=== PATIENT | male | born 1980 | race Two or more races ===

== ENCOUNTER 2018-10-10 18:07 | Emergency (ER) | payer SELFPAY ==
[~2018-10-10] VITALS: Ht 172.7 cm; Wt 68.0 kg
[2018-10-10 18:28] VITALS: BP 118/73
[2018-10-10] MEDS ORDERED: HYDROcodone-ACET 5/325MG TAB PO ONE (22:30)
[2018-10-10] MEDS ORDERED: cefTRIAXone SOD 1,000 MG VL IM ONE (22:30)
[2018-10-10] MEDS ORDERED: LIDOCAINE 2%HCL (LOCAL ANESTH.) INJ 20ML MDV ONE (22:59)
== END 2018-10-10 23:21 | disposition home or self-care (01) ==
LOC: ER 18:16
DX: L02.416 Cutaneous abscess of left lower limb (principal); Z88.6 Allergy status to analgesic agent
CPT/HCPCS: 10060; 96372; 99283; C1887; J0696

== ENCOUNTER 2019-02-18 13:22 | Emergency (ER) | payer MEDICAID, OTHER ==
[~2019-02-18] VITALS: Ht 170.2 cm; Wt 63.5 kg
[2019-02-18 13:38] VITALS: BP 126/87
[2019-02-18 14:35] LABS: Basophils # (auto) 0.2 uL; Basophils % (auto) 3.1 % (0.0-2.0); Eosinophils # (auto) 0.1 uL; Eosinophils % (auto) 1.8 % (0.0-7.0); Hematocrit 50.2 % (41.0-53.0); Hemoglobin 16.8 g/dL (13.5-17.5); Lymphocytes # (auto) 1.3 uL; Mean Corpuscular Hemoglobin 31.2 pg (28.0-32.0); Mean Corpuscular Hgb Conc. 33.5 g/dL (32.0-36.0); Mean Corpuscular Volume 93.3 fL (80.0-100.0); Monocytes # (auto) 0.7 uL; Monocytes % (auto) 10.4 % (0.0-12.0); Neutrophils # (auto) 4.2 uL; Neutrophils % (auto) 64.7 % (37.0-80.0); Nucleated Red Blood Cells % 0.1 %; Platelet Count (auto) 393 10^3/uL (140-450); Red Blood Cells 5.38 10^6/uL (4.5-5.90); Red Cell Distribution Width 13.8 % (11.8-14.3); White Blood Cell 6.5 10^3/uL (4.4-10.8)
[2019-02-18 15:29] LABS: Anion Gap 5 (5-15); Carbon Dioxide 28 mmol/L (21-32); Chloride 105 mmol/L (98-107); Glucose 85 mg/dL (74-106); Potassium 3.9 mmol/L (3.5-5.1); Sodium 138 mmol/L (136-145)
[2019-02-18 15:30] LABS: Alanine Aminotransferase 77 U/L (16-61); Alkaline Phosphatase 100 U/L (45-117); Aspartate Aminotransferase 41 U/L (15-37); BUN/Creatinine Ratio 15.4; Blood Urea Nitrogen 18 mg/dL (7-18); GFR African American 89 mL/min; GFR Non-African American 74 mL/min
[2019-02-18 15:31] LABS: Albumin 3.9 g/dL (3.4-5.0); Bilirubin, Total 0.5 mg/dL (0.2-1.0); Total Protein 8.4 g/dL (6.4-8.2)
== END 2019-02-18 23:16 | disposition left against medical advice (07) ==
LOC: ER 13:30
DX: R10.31 Right lower quadrant pain (principal); Z53.21 Procedure and treatment not carried out due to patient leaving prior to being seen by health care provider
CPT/HCPCS: 36415; 80053; 85025

== ENCOUNTER 2019-08-06 01:35 | Emergency (ER) | payer SELFPAY | END 2019-08-06 01:52 | disposition left against medical advice (07) | LOC: ER 01:36 | DX: Z02.2 Encounter for examination for admission to residential institution (principal); Z88.6 Allergy status to analgesic agent; Z88.8 Allergy status to other drugs, medicaments and biological substances ==